=== PATIENT | male | born 1990 | race Caucasian/White ===

== ENCOUNTER 2021-05-18 14:56 | Emergency (ER) | payer MEDICAID ==
[2021-05-18] MEDS ORDERED: traMADol 50 MG Tab PO ONE (14:57)
--- NOTE | 2021-05-18 16:41 | EDM.PDOC ---
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 He had yesterday off and was trying to rest it. But it did hurt when he pronated and supinated his forearm or did flexion and extension of his right elbow. It was tender to palpation as well. There was no increased warmth or redness noted. He came in to work extra today and he work for 2 hours and had pain all through his work and the pain seemed to get worse with use and he finally decided the shouldn't continue to work and left work but came here for evaluation. The pain is up to a 9/10. It is sharp and it radiates up his right arm to his shoulder. He has normal sensation in his right hand. There were no other injuries. There are no other associated signs or symptoms. There are no other modifying factors. 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 Surgical history as detailed below.) - Past Surgical History Musculoskeletal Surgical History: Reports: Arthroscopic Knee, Other (See Below) (Right elbow surgery) Social & Family History - Tobacco Use Tobacco Use Status *Q: Current Every Day Tobacco User - Alcohol Use Alcohol Use History: No - Living Situation & Occupation Living situation: Reports: Occupation: Employed (Works at [employer]) Review of Systems - Review of Systems Review Of Systems: See Below Constitutional: Denies: Chills, Fever Eyes: Denies: Pain Ears: Denies: Pain Nose: Denies: Congestion, Epistaxis Mouth/Throat: Denies: Throat Swelling, Painful Swallowing Respiratory: Denies: Shortness of Breath, Cough Cardiovascular: Denies: Chest Pain, Palpitations Genitourinary: Denies: Dysuria Musculoskeletal: Reports: Arm Pain (Right elbow and upper arm). Denies: Neck Pain Skin: Denies: Rash, Erythema Neurological: Denies: Headache, Numbness, Paresthesia ED EXAM, GENERAL - Physical Exam Exam: See Below Exam Limited By: No Limitations General Appearance: Alert, WD/WN, Moderate Distress (Appears in some pain) Eye Exam: Bilateral Eye: EOMI, Normal Inspection, PERRL Ears: Normal External Exam, Hearing Grossly Normal Ear Exam: Bilateral Ear: Auricle Normal Nose: Normal Inspection, Normal Mucosa, No Blood Throat/Mouth: Normal Inspection, Normal Lips, Normal Oropharynx, Normal Voice, No Airway Compromise Head: Atraumatic, Normocephalic Neck: Normal Inspection, Supple, Non-Tender, Full Range of Motion Respiratory/Chest: No Respiratory Distress, Lungs Clear, Normal Breath Sounds, No Accessory Muscle Use, Chest Non-Tender Cardiovascular: Normal Peripheral Pulses, Regular Rate, Rhythm, No Murmur Peripheral Pulses: 2+: Radial (L), Radial (R) GI/Abdominal: Normal Bowel Sounds, Soft, Non-Tender Back Exam: Normal Inspection Extremities: No Pedal Edema, Normal Capillary Refill, Arm Pain (Tender over the right elbow. No effusion noted. No increased warmth or redness noted.), Limited Range of Motion (In right elbow secondary to the pain.) Neurological: Alert, Oriented, CN II-XII Intact, Normal Cognition, No Motor/Sensory Deficits Psychiatric: Normal Affect Skin Exam: Warm, Dry, Intact, Normal Color, No Rash. No: Erythema Course - Orders/Labs/Meds Orders: Active Orders 24 hr Category Date Time Status Elbow 2V Rt [CR] Stat Exams 05/18/21 15:52 Taken Humerus Rt [CR] Stat Exams 05/18/21 15:53 Taken - Radiology Interpretation Free Text/Narrative:: Right elbow x-ray showed no fracture or dislocation per my read Right humerus x-ray revealed no fracture per my read. - Re-Assessments/Exams Free Text/Narrative Re-Assessment/Exam: 05/18/21 16:35: I called [place] [facility] call to discuss the patient's case with the orthopedist special education bus driver and they will call me back. The patient's x-ray showed no evidence of fracture on my evaluation of them. He is neurovascularly intact. I had discussed this with the patient and recommended orthopedic follow-up and he is in agreement with that plan. 05/18/21 16:50: I discussed the patient's case with Dr. Zapien, orthopedist at [facility], and he feels that the patient could follow-up in clinic within the next 1-2 weeks. I will give the patient the number and he should call on Thursday to arrange an appointment next week if possible. I had offered the patient a sling and he did not want this. I will place him in an Eduardo wrap for comfort and support. He should avoid any strenuous use or repetitive use with his right arm. He can take ibuprofen and Tylenol for pain as needed. I have also given him a take-home pack and a small prescription of tramadol that he continues for more severe pain. Departure - Departure Time of Disposition: 17:00 Disposition: Home, Self-Care 01 Condition: Good Clinical Impression: Strain of right elbow and forearm Qualifiers: Encounter type: initial encounter Qualified Code(s): S56.911A - Strain of unspecified muscles, fascia and tendons at forearm level, right arm, initial encounter - Discharge Information Prescriptions: traMADol [Ultram] 50 mg PO Q6H PRN #8 tab PRN Reason: Moderate to severe pain Instructions: Muscle Strain, [id number] Referrals: PCP,None [Primary Care Provider] - Additional Instructions: The x-rays of your right elbow and right upper arm showed no definite fractures. As we discussed, this is either a torn ligament or a tear in the muscle or an overuse type repetitive injury. You should call [phone], [facility] orthopedic clinic, and arrange for an appointment this week if possible. You should call Thursday. You will need to avoid strenuous use with your right arm and repetitive use with your right arm as well until have followed up with the electronic health records specialist. You can take ibuprofen and Tylenol for the pain as needed. Medication as prescribed for more severe pain (tramadol 50 mg). Apply ice packs intermittently to the elbow area. Use the Eduardo wrap for comfort and support. Back to the emergency department for redness, increased swelling, fever or any other concerning signs or symptoms. - My Orders Last 24 Hours: My Active Orders 05/18/21 15:52 Elbow 2V Rt [CR] Stat 05/18/21 15:53 Humerus Rt [CR] Stat - Assessment/Plan Last 24 Hours: My Active Orders 05/18/21 15:52 Elbow 2V Rt [CR] Stat 05/18/21 15:53 Humerus Rt [CR] Stat
--- NOTE | 2021-05-20 10:43 | CR ---
INDICATION: Injury with pain. RIGHT ELBOW: Three views of the right elbow were obtained 05/18/21 - no comparison. No evidence of an acute fracture, dislocation, or joint effusion was identified. Bone density appeared to be normal. If symptoms persist - if occult fracture site is suspected clinically, reexamination in 10 to 14 days may be helpful. MTDD
--- NOTE | 2021-05-20 10:47 | CR ---
INDICATION: Injury, now with pain. RIGHT HUMERUS: Frontal and lateral views of the right humerus were obtained 05/18/21 - no comparisons. An acute fracture, dislocation, or other significant bone or joint abnormality, was not identified. If symptoms persist - if occult fracture site is suspected clinically, reexamination in 10 to 14 days may be helpful. [facility]
== END 2021-05-18 17:29 | disposition home or self-care (01) ==
LOC: FB.ED 14:56
DX: S56.911A Strain of unspecified muscles, fascia and tendons at forearm level, right arm, initial encounter (principal); Z72.0 Tobacco use; X50.0XXA Overexertion from strenuous movement or load, initial encounter
CPT/HCPCS: 73060; 73070; 99283; A9270